=== PATIENT | female | born 1995 | race Caucasian/White ===

== ENCOUNTER 2020-02-08 11:48 | Inpatient (IN) | payer MEDICARE, OTHER ==
[~2020-02-08] VITALS: Ht 149.9 cm; Wt 39.9 kg
[~2020-02-08 11:48] MED LIST: BACL20 PO; Bactrim Ds Tab1 EACH PO; Bactroban22 GM TOP; ENBRACE HR SOF1 EACH PO; HYDR1TAB94 PO; IBUP800 PO; NITR100CA PO
--- NOTE | 2020-02-12 20:50 | NUR ---
DRUG UA COLLECTED PER ORDER AND CARRIED TO LAB PER PROTOCOL
[2020-02-12 22:11] LABS: BASOPHILS ABSOLUTE AUTO 0.01 K/mm3 (0.00-0.23); BASOPHILS PERCENT AUTO 0 % (0-2); EOSINOPHILS ABSOLUTE AUTO 0.01 K/mm3 (0.00-0.68); EOSINOPHILS PERCENT AUTO 0 % (0-6); Hematocrit 34.8 % (33.0-51.0); Hemoglobin 9.8 g/dL (11.5-16.0); IMMATURE GRAN ABSOLUTE AUTO 0.04 K/mm3 (0.00-0.10); IMMATURE GRAN PERCENT AUTO 1 % (0-1); LYMPHOCYTES PERCENT AUTO 16 % (21-46); MONOCYTES ABSOLUTE AUTO 0.48 K/mm3 (0.16-1.47); MONOCYTES PERCENT AUTO 7 % (4-13); Mean Corpuscular HGB 21.4 pg (26.0-34.0); Mean Corpuscular HGB Conc 28.2 g/dL (31.5-36.5); Mean Corpuscular Volume 76 fL (80-100); NEUTROPHILS ABSOLUTE AUTO 5.46 K/mm3 (1.96-9.15); NEUTROPHILS PERCENT AUTO 77 % (41-73); NRBC ABSOLUTE 0.06 K/mm3 (0.00-0.02); NRBC Auto 0.8 /100 WBC (0.0-0.2); Platelet Count 187 K/mm3 (150-400); RDW Coefficient Variation 22.7 % (11.7-14.2); Red Blood Cell Count 4.59 M/mm3 (3.80-5.20)
[2020-02-12 22:48] LABS: U Amphetamine Screen DETECTED; U Barbituate Screen Not Detected; U Benzodiazapine Screen Not Detected; U Buprenorphine Screen Not Detected; U Cannabinoids Screen Not Detected; U Cocaine Screen Not Detected; U Methadone Screen Not Detected; U Methamphetamine Screen DETECTED; U Opiates Screen DETECTED; U Oxycodone Screen Not Detected; U Phencyclidine Screen Not Detected; U Propoxyphene Screen Not Detected
[2020-02-13 08:21] LABS: PCO2 Cord - Arterial 48.6 mmHg (40-50); PO2 Cord - Arterial 16.7 mmHg (16-20)
[2020-02-13 08:22] LABS: PCO2 Cord - Venous 42.2 mmHg (40-50); pH Umbilical Cord - Venous 7.35 (7.26-7.35)
--- NOTE | 2020-02-13 08:32 | NUR ---
02/13/20 0832 Shereen Rubio DELIVERY OF VIABLE MALE AT 0808. WEIGHT 2820GM 6LBS 3 OZ; HEAD 14.5 IN; LENGTH 19 INCHES; HEAD 14.5 INCHES; CHEST 12 INCHES. CORD BLOOD SAMPLE FOR BLOOD TYPE AND CORD SEGMENT, FOR CORD STAT DRUG SCREEN GIVEN TO Hazel VERAS RN. CORD SEGMENT FOR CORD GASES GIVEN TO RT HILDA.
--- NOTE | 2020-02-13 17:50 | NUR ---
Farhan Redding CNM updated about low urine output since this am. CNM would like to be notified if UO doesn't improve.
--- NOTE | 2020-02-13 22:26 | NUR ---
1930- 100ML YELLOW URINE EMPTIED FROM CATHETER. OFFGOING NURSE REPORTS CATHETER LAST EMPTIED AT 1700 WITH 250ML URINE AT THAT TIME. SO URINE OUTPUT IMPROVED FROM 2574-5490. 2214-NOTED ONLY 10ML URINE OUTPUT SINCE LAST EMPTIED AT 0. SBAR UPDATE TO PROVIDER SHARON AVILA CNM. TELEPHONE ORDER FOR LASIX 20MG PO X1 DOSE NOW. PT IS AWAKE AND HAS BEEN TAKING IN PO FLUIDS. WILL CONTINUE TO MONITOR.
[2020-02-14 05:22] LABS: Hematocrit 26.7 % (33.0-51.0); Hemoglobin 8.1 g/dL (11.5-16.0); Mean Corpuscular HGB 23.8 pg (26.0-34.0); Mean Corpuscular HGB Conc 30.3 g/dL (31.5-36.5); Mean Platelet Volume 11.7 fL (9.1-12.4); Platelet Count 153 K/mm3 (150-400); RDW Coefficient Variation 23.4 % (11.7-14.2); RDW Standard Deviation 51.2 fL (35.1-46.3); White Blood Cell Count 10.86 K/mm3 (4.00-11.30)
[2020-02-14 05:23] LABS: Mean Corpuscular Volume 79 fL (80-100)
--- NOTE | 2020-02-15 00:14 | NUR ---
2300-SBAR FROM Farhan BOYER RN, ASSUMED CARE OF PT AT THAT TIME. CONCUR WITH SHIFT ASSESSMENT. ROUNDED ON PT, VITALS ASSESSED AND WNL, PT DENIES ANY NEEDS AT THIS TIME. WILL CONTINUE TO MONITOR.
[2020-02-15 05:27] LABS: Hematocrit 29.4 % (33.0-51.0); Hemoglobin 8.7 g/dL (11.5-16.0); Mean Corpuscular HGB 23.9 pg (26.0-34.0); Mean Corpuscular HGB Conc 29.6 g/dL (31.5-36.5); Mean Corpuscular Volume 81 fL (80-100); Mean Platelet Volume 11.6 fL (9.1-12.4); Platelet Count 180 K/mm3 (150-400); RDW Coefficient Variation 25.3 % (11.7-14.2); RDW Standard Deviation 54.1 fL (35.1-46.3); Red Blood Cell Count 3.64 M/mm3 (3.80-5.20); White Blood Cell Count 14.95 K/mm3 (4.00-11.30)
[2020-02-15] MEDS ORDERED: OXYCODONE-ACET1 EAC3 PO (15:01)
[2020-02-15] MEDS ORDERED: IBU800 MG PO (15:01)
--- NOTE | 2020-02-15 15:51 | NUR ---
pt elidued to the fact that she was somewhat homeless. unsure if she has a ride home and a place to stay, case managemnazul came to pt room to talk about housing options and motel options. pt declined both. stated that she finally got ahold of a friend that will let her stay at ther house for awhile in a safe enviornment. rn replaced steri strips.
--- NOTE | 2020-02-15 17:26 | NUR ---
pt given discharge instructions, denies any concerns at this time. ppfu set for 02/19/20 at 1100, will call and make follow up with obgyn tomorrow. pt vitals all WNL, incsion clean dry and intact after steri strip change. pt walked out and helped into car with friend that is taking her home
== END 2020-02-15 17:00 | disposition home or self-care (01) | DRG 787 ==
LOC: BC 02-12 20:40
PROVIDERS: Advanced Practice Midwife; ADMIT Obstetrics & Gynecology
PROC: 10D00Z1 Extraction of Products of Conception, Low, Open Approach (ICD-10-PCS; principal; 2020-02-13 07:30)
DX: O34.211 Maternal care for low transverse scar from previous cesarean delivery (principal); G82.20 Paraplegia, unspecified; O99.354 Diseases of the nervous system complicating childbirth; Z3A.39 39 weeks gestation of pregnancy; Z37.0 Single live birth; Z86.14 Personal history of Methicillin resistant Staphylococcus aureus infection; O99.334 Smoking (tobacco) complicating childbirth; F17.210 Nicotine dependence, cigarettes, uncomplicated; O90.81 Anemia of the puerperium; D64.9 Anemia, unspecified
CPT/HCPCS: 36415; 36430; 82803; 85025; 85027; 86850; 86900; 86901; 86923; A9270-GY; J0690; J1885; J2270; J2405; J2590; J2765; J3010; J7030; J7120; P9016

== ENCOUNTER → 2021-05-13 | Outpatient (CLI) | payer MEDICARE, OTHER ==
[~2021-05-13] MED LIST changes: +IBU800 MG PO; +OXYCODONE-ACET1 EAC3 PO
== END | disposition home or self-care (01) ==
LOC: LAB 18:00 → LAB SHORT 18:00
DX: N39.0 Urinary tract infection, site not specified (principal)
CPT/HCPCS: 87077; 87086; 87186

== ENCOUNTER → 2021-10-06 | Outpatient (CLI) | payer MEDICARE, OTHER ==
[2021-10-08 01:07] LABS: CHLAMYDIA TRACHOMATIS, NAA Negative (Negative)
== END | disposition home or self-care (01) ==
LOC: LAB SHORT 14:39 → LAB 14:39
PROVIDERS: Physician Assistant Medical
DX: R39.15 Urgency of urination (principal)
CPT/HCPCS: 87491; 87591

== ENCOUNTER 2023-02-04 13:44 | Day surgery (SDC) | payer MEDICARE, OTHER ==
[~2023-02-04] VITALS: Ht 149.9 cm; Wt 38.0 kg
[2023-02-04] VITALS (10 sets, daily range): BP systolic 104–118; BP diastolic 54–91
--- NOTE | 2023-02-04 14:52 | NUR ---
Ambulatory in [facility] warming gown applied. History, Chart, Medications and Allergies reviewed before start of procedure.Lungs clear T/O to Auscultation. Patient confirms NPO status and agrees with scheduled surgery. Pre-Op teaching done. Pt verbalizes understanding. Patient States Post-Procedure ride home has been arranged.
--- NOTE | 2023-02-04 16:46 | NUR ---
REPORT RECEIVED FROM GAUDENCIO GOLDSMITH RN. VSS. PT ABLE TO REPOSITION SELF IN BED. PT VOIDED VIA BEDPAN. PT REPORTS 4/10 IRRITATION TO THROAT. PT DENIES NAUSEA OR OTHER COMPLAINTS AT THIS TIME. PT REQUESTING PO FLUIDS AND TOLERATING THEM WELL.
--- NOTE | 2023-02-04 17:31 | NUR ---
Patient up to Ambulate independently. Gait steady. Discharge instructions reviewed with patient. Patient verbalizes understanding. Copy given to patient to take home. Patient States Post-Procedure ride home has been arranged. Discharged via wheelchair to private car for ride home.
--- NOTE | 2023-02-05 13:05 | NUR ---
02/05/23 1305 Estelle Cancino VERIFICATIONS: EDIT CHART.
== END 2023-02-04 17:31 | disposition home or self-care (01) ==
LOC: ORSCMMR 13:44 → ORD 15:15 → ORSCMMR 17:31
PROVIDERS: Obstetrics & Gynecology
PROC: 0UBC7ZX Excision of Cervix, Via Natural or Artificial Opening, Diagnostic (ICD-10-PCS; principal; 2023-02-04 15:15)
DX: D06.0 Carcinoma in situ of endocervix (principal); F17.210 Nicotine dependence, cigarettes, uncomplicated; Z79.899 Other long term (current) drug therapy; G82.52 Quadriplegia, C1-C4 incomplete
CPT/HCPCS: A9270; J0690; J1100; J1885; J2250; J2405; J2765; J3010; J7120

== ENCOUNTER 2023-08-17 09:48 | Emergency (ER) | payer MEDICARE, OTHER ==
[~2023-08-17] VITALS: Ht 152.4 cm; Wt 33.6 kg
[2023-08-17 10:46] LABS: BASOPHILS ABSOLUTE AUTO 0.01 K/mm3 (0.00-0.23); BASOPHILS PERCENT AUTO 0 % (0-2); EOSINOPHILS ABSOLUTE AUTO 0.02 K/mm3 (0.00-0.68); EOSINOPHILS PERCENT AUTO 0 % (0-6); Hematocrit 42.2 % (33.0-51.0); Hemoglobin 14.3 g/dL (11.5-16.0); IMMATURE GRAN ABSOLUTE AUTO 0.01 K/mm3 (0.00-0.10); IMMATURE GRAN PERCENT AUTO 0 % (0-1); LYMPHOCYTES PERCENT AUTO 24 % (21-46); MONOCYTES ABSOLUTE AUTO 0.31 K/mm3 (0.16-1.47); MONOCYTES PERCENT AUTO 7 % (4-13); Mean Corpuscular HGB 30.1 pg (26.0-34.0); Mean Corpuscular HGB Conc 33.9 g/dL (31.5-36.5); Mean Corpuscular Volume 89 fL (80-100); Mean Platelet Volume 11.2 fL (9.1-12.4); NEUTROPHILS ABSOLUTE AUTO 3.07 K/mm3 (1.96-9.15); NEUTROPHILS PERCENT AUTO 68 % (41-73); Platelet Count 225 K/mm3 (150-400); RDW Coefficient Variation 12.6 % (11.7-14.2); RDW Standard Deviation 41.6 fL (35.1-46.3); Red Blood Cell Count 4.75 M/mm3 (3.80-5.20); White Blood Cell Count 4.52 K/mm3 (4.00-11.30)
[2023-08-17 11:12] LABS: Acetaminophen, Random <2.0 ug/mL (10.0-30.0); Alanine Aminotransfer (ALT/SGP 22 U/L (12-78); Albumin, Blood 4.5 g/dL (3.4-5.0); Albumin/Globulin Ratio 1.4 (0.8-1.8); Alk Phos 42 U/L (50-136); Anion Gap 5 mmol/L (6-16); Aspartate Aminotrans (AST/SGOT 26 U/L (12-37); Bilirubin, Total 0.5 mg/dL (0.1-1.0); Blood Urea Nitrogen 12 mg/dL (8-24); CO2, Blood 25 mmol/L (21-32); Calcium, Blood 9.2 mg/dL (8.5-10.1); Chloride, Blood 109 mmol/L (98-108); Creatinine, Blood 0.44 mg/dL (0.40-1.00); Globulin, Blood 3.3 g/dL (2.2-4.0); Glomerular Filtration Rate 136 (60-); Glucose, Blood 92 mg/dL (70-99); Potassium, Blood 4.3 mmol/L (3.5-5.5); Sodium, Blood 139 mmol/L (136-145); Total Protein, Blood 7.8 g/dL (6.4-8.2)
[2023-08-17 12:37] LABS: Source, Urine Clean Catch
[2023-08-17 12:40] LABS: Appearance, Urine Turbid (Clear); Bilirubin, Urine Neg (Neg); Blood, Urine 5+ (Neg); Color, Urine Red (P-Yellow); Glucose Qualitative, Urine Neg (Neg); Ketones, Urine 3+ (Neg); Leukocyte Esterase, Urine 1+ (Neg); Nitrite, Urine Neg (Neg); Protein, Urine 3+ (Neg); Urobilinogen, Urine 1+ (Normal)
[2023-08-17 12:51] LABS: Red Blood Cells, Urine TNTC /hpf (0-2)
[2023-08-17 12:52] LABS: Bacteria Few /hpf; Squamous Epithelial Cells Few /hpf (Few)
[2023-08-17 12:53] LABS: Amorphous Light (0-Heavy)
[2023-08-17] MEDS ORDERED: ONDA4ODT MM (12:58)
[2023-08-17 13:15] VITALS: BP 108/69
== END 2023-08-17 13:28 | disposition home or self-care (01) ==
LOC: ER 09:48
PROVIDERS: Physician Assistant; Student in an Organized Health Care Education/Training Program
DX: R11.2 Nausea with vomiting, unspecified (principal); T40.2X5A Adverse effect of other opioids, initial encounter; T36.0X5A Adverse effect of penicillins, initial encounter; T36.1X5A Adverse effect of cephalosporins and other beta-lactam antibiotics, initial encounter; T39.1X1A Poisoning by 4-Aminophenol derivatives, accidental (unintentional), initial encounter; E86.0 Dehydration; F17.200 Nicotine dependence, unspecified, uncomplicated; Z88.1 Allergy status to other antibiotic agents; Z98.890 Other specified postprocedural states
CPT/HCPCS: 80053; 81001; 81025; 85025; 87086; 96374; 96375; 99283-25; G0480; J1885; J2405; J7030

== ENCOUNTER 2025-02-02 10:23 | Emergency (ER) | payer MEDICARE, OTHER ==
[~2025-02-02] VITALS: Ht 149.9 cm; Wt 35.4 kg
[~2025-02-02 10:23] MED LIST changes: +ONDA4ODT MM
[2025-02-02] MEDS ORDERED: Ondansetron HCl 2 MG / ML 2ML Vial IV ONE (10:55)
[2025-02-02] MEDS ORDERED: NS 1,000 ML IV SCH (10:55)
[2025-02-02 12:36] LABS: Influenza A, PCR NEGATIVE (NEGATIVE); Influenza B, PCR NEGATIVE (NEGATIVE); Resp Syncytial Virus, PCR NEGATIVE (NEGATIVE); SARS-Cov-2 (COVID-19) PCR, MMC NEGATIVE (NEGATIVE)
[2025-02-02] MEDS ORDERED: ONDA4ODT MM (13:43)
[2025-02-02 13:47] VITALS: BP 112/72
== END 2025-02-02 13:51 | disposition home or self-care (01) ==
LOC: ER 10:23
PROVIDERS: Physician Assistant
DX: K52.9 Noninfective gastroenteritis and colitis, unspecified (principal); E86.0 Dehydration; Z88.1 Allergy status to other antibiotic agents; Z79.899 Other long term (current) drug therapy; F17.200 Nicotine dependence, unspecified, uncomplicated; R11.2 Nausea with vomiting, unspecified; Z59.89 Other problems related to housing and economic circumstances
CPT/HCPCS: 0241U; 96374; 99284-25; J2405; J7030